=== PATIENT | male | born 1975 | race Caucasian/White ===

== ENCOUNTER 2023-12-09 11:15 | Emergency (ER) | payer OTHER ==
[2023-12-09 11:31] VITALS: BP 115/84; PULSE 73; RESP 20; TEMP 98.6; BMI 35.1
[2023-12-09] MEDS ORDERED: LIDOCAINE HCL 2% (50ML VIAL) INF ONE (11:52)
[2023-12-09] MEDS ORDERED: LIDOCAINE HCL 2% (20ML MULTI-DOSE VIAL) ONE (11:59)
[2023-12-09] MEDS ORDERED: DIPHTH,PERTUSS(ACELL),TET 0.5 ML DISP.SYRIN IM ONE (12:38)
[2023-12-09] MEDS: DIPHTH,PERTUSS(ACELL),TET 0.5 ML DISP.SYRIN IM ONE (12:47)
== END 2023-12-09 12:55 | disposition home or self-care (01) ==
LOC: FER 11:15
PROC: 3E0234Z Introduction of Serum, Toxoid and Vaccine into Muscle, Percutaneous Approach (ICD-10-PCS; principal; 2023-12-09)
DX: S81.811A Laceration without foreign body, right lower leg, initial encounter (principal); W26.8XXA Contact with other sharp object(s), not elsewhere classified, initial encounter; Z23 Encounter for immunization
CPT/HCPCS: 90715; 99284-25